=== PATIENT | male | born 1990 | race Caucasian/White ===

== ENCOUNTER 2016-05-08 12:21 | Emergency (ER) | payer OTHER ==
[2016-05-08 12:35] VITALS: BP 137/95; PULSE 86; TEMP 97.9; BMI 35.9
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
== END 2016-05-08 14:37 | disposition home or self-care (01) ==
LOC: FER 12:21
DX: M70.51 Other bursitis of knee, right knee (principal); G89.29 Other chronic pain
CPT/HCPCS: 73562-TC-RT; 99282-25

== ENCOUNTER 2017-03-19 11:39 | Emergency (ER) | payer OTHER ==
[2017-03-19 11:46] VITALS: BP 131/77; PULSE 77; TEMP 98; BMI 33.0
[2017-03-19 12:45] LABS: URINE APPEARANCE CLEAR; URINE BILIRUBIN NEGATIVE (NEGATIVE); URINE BLOOD NEGATIVE (NEGATIVE); URINE COLOR LTYELLOW; URINE GLUCOSE (UA) NEGATIVE (NEGATIVE); URINE KETONE NEGATIVE (NEGATIVE); URINE NITRITE NEGATIVE (NEGATIVE); URINE PROTEIN NEGATIVE (NEGATIVE); URINE UROBILINOGEN NEGATIVE mg/dL (0.2-1.0)
[2017-03-19] MEDS ORDERED: AZITHROMYCIN 1 GM PACKET PO ONE (12:58)
--- NOTE | 2017-03-19 13:08 | PDOC ---
History of Present Illness - General Chief Complaint: Pain Stated Complaint: STD TESTING Time Seen by Provider: 03/19/17 11:54 History Source: Patient Exam Limitations: No Limitations - History of Present Illness Travel History: No Initial Comments: 03/19/17 13:04 26 yr male with urinary urgency for 2 days. Pt states he has had unprotected sex with 2 women in the past month. He also states one of them told him she has trichominias. Pt has history of chlamydia unsure if he was treated. Pain Radiation: reports: no radiation Activities at Onset: reports: none Past History - Past Medical History Allergies/Adverse Reactions: Allergies Allergy/AdvReac Type Severity Reaction Status Date / Time SEAFOOD Allergy Swelling Uncoded 03/19/17 11:46 Home Medications: Ambulatory Orders Metronidazole [Flagyl -] 500 mg PO BID #14 tablet 03/19/17 COPD: No Other medical history: DENIES - Suicide/Smoking/Psychosocial Hx Smoking Status: No Smoking History: Never smoked Have you smoked in the past 12 months: No Number of Cigarettes Smoked Daily: 0 Information on smoking cessation initiated: Yes Hx Alcohol Use: No Drug/Substance Use Hx: Yes (MARIJUANA) Substance Use Type: None *Physical Exam - Vital Signs Last Vital Signs Temp Pulse Resp BP Pulse Ox 98 F 77 18 131/77 100 03/19/17 11:44 03/19/17 11:44 03/19/17 11:44 03/19/17 11:44 03/19/17 11:44 - Physical Exam General Appearance: Yes: Nourished, Appropriately Dressed HEENT: positive: EOMI, FAHAD Neck: positive: Supple Respiratory/Chest: positive: Lungs Clear, Normal Breath Sounds Cardiovascular: positive: Regular Rhythm, Regular Rate Gastrointestinal/Abdominal: positive: Normal Bowel Sounds, Soft. negative: Tender Male Genitalia: positive: normal genitalia. negative: discharge, testicular tenderness, testicular mass, epididymus tender, CVAT Rectal Exam: positive: deferred Extremity: positive: Normal Capillary Refill, Normal Inspection, Normal Range of Motion Integumentary: positive: Normal Color, Dry, Warm Neurologic: positive: Fully Oriented, Alert, Normal Mood/Affect, Normal Response , Motor Strength 5/5 ED Treatment Course - ADDITIONAL ORDERS Additional order review: Laboratory Results 03/19/17 12:21 Urine Color Ltyellow Urine Appearance Clear Urine pH 7.0 D Ur Specific [place] 1.016 Urine Protein Negative Urine Glucose (UA) Negative Urine Ketones Negative Urine Blood Negative Urine Nitrite Negative Urine Bilirubin Negative Urine Urobilinogen Negative Medical Decision Making - Medical Decision Making 03/19/17 13:09 cc: urinary urgency neg dysuria, neg discharge neg scrotal pain neg testicle tenderness exposed to trichomonas unprotected sexual intercourse will treat for Gc/chlamydia and trich will check HIV and RPR safe sexual practices and risky behavior discussed in detail with pat. pt understands to use condoms every time to protect himself . pt aware to not have any sexual contact for at least one week and to notify all partners to be tested . 03/20/17 21:27 *DC/Admit/Observation/Transfer Diagnosis at time of Disposition: Possible exposure to STD, Urinary urgency, Concern about STD in male without diagnosis - Discharge Dispostion Disposition: HOME Condition at time of disposition: Good - Prescriptions Prescriptions: Metronidazole [Flagyl -] 500 mg PO BID #14 tablet - Referrals Referrals: STAFF,NOT ON [Primary Care Provider] - Jose Chandler MD [Staff Physician] - - Patient Instructions Additional Instructions: 03/19/17 1. As discussed, a screening test for the HIV virus was performed today. Your HIV test is Negative (normal). 2. As discussed, if you engaged in high risk-behavior in the three (3) months prior to this test, you could still potentially be at risk and you will need to be re-tested. 3. As discussed, avoid any high risk behavior (such as unprotected sex or needle-sharing) in the future to minimize the chances of kurtis HIV. always use condoms to protect yourself take the flagyl as directed for 7 days we will notify you if the cultures are positive avoid any sexual activity for at least one week return to ER for any worsening symptoms or follow with the urologist if symptoms worsen or persist - Post Discharge Activity
[2017-03-19] MEDS ORDERED: AZITHROMYCIN 250 MG TABLET ONE (13:09)
[2017-03-19 13:53] LABS: HIV 1 & 2 AB NEGATIVE; HIV 1 AGp24 NEGATIVE
[2017-03-19 17:05] LABS: URINE LEUK ESTERASE Negative (NEGATIVE)
== END 2017-03-19 14:14 | disposition home or self-care (01) ==
LOC: JERFT 11:39
DX: Z20.2 Contact with and (suspected) exposure to infections with a predominantly sexual mode of transmission (principal)
CPT/HCPCS: 36415; 81003; 86593; 87389; 87491; 87591; 99281-25

== ENCOUNTER 2017-07-09 09:24 | Emergency (ER) | payer OTHER ==
[2017-07-09 09:35] VITALS: BP 130/70; PULSE 95; TEMP 97.5; BMI 36.2
--- NOTE | 2017-07-09 10:28 | PDOC ---
History of Present Illness - General Chief Complaint: Pain Stated Complaint: PENILE PROBLEM Time Seen by Provider: 07/09/17 10:11 History Source: Patient Exam Limitations: No Limitations - History of Present Illness Travel History: No Initial Comments: 07/09/17 10:31 Patient came for evaluation of recurrent dysuria, pain and burning with urination. Denies swelling, denies discharge, denies any scrotal pain or swelling. Although states while at work, works as maintenance parts technician, feels some strain and some discomfort in his groin and lower abdomen. Patient states had sex with same partner that needed treatment from 2 months ago although his culture reports were negative. Is concerned that this partner has STDs and has had continued unprotected sex. Denies history of STDs except for a last visit where he was treated for same but understands all tests were negative.. Timing/Duration: reports: constant Quality: reports: mild Abdominal Pain Onset Location: reports: other (Lower quadrant pain and groin) Alleviating Factors: improves with: None Past History - Travel Traveled outside of the country in the last 30 days: No Close contact w/someone who was outside of country & ill: No - Past Medical History Allergies/Adverse Reactions: Allergies Allergy/AdvReac Type Severity Reaction Status Date / Time SEAFOOD Allergy Severe Swelling Uncoded 07/09/17 09:25 Home Medications: Ambulatory Orders NK [No Known Home Medication] 07/09/17 COPD: No - Suicide/Smoking/Psychosocial Hx Smoking Status: No Smoking History: Never smoked Have you smoked in the past 12 months: No Number of Cigarettes Smoked Daily: 0 Hx Alcohol Use: No Drug/Substance Use Hx: No Substance Use Type: None Review of Systems - Review of Systems Able to Perform ROS?: Yes Is the patient limited Vietnamese proficient: Yes Constitutional: Yes: See HPI. No: Symptoms Reported, Fever, Malaise HEENTM: No: Symptoms Reported Respiratory: No: Symptoms reported ABD/GI: Yes: Symptoms Reported, See HPI. No: Nausea : Yes: Symptoms Reported, See HPI, Burning, Dysuria, Frequency, Urgency. No: Discharge, Flank Pain, Hematuria Integumentary: No: Symptoms Reported All Other Systems: Reviewed and Negative *Physical Exam - Vital Signs Last Vital Signs Temp Pulse Resp BP Pulse Ox 97.5 F L 95 H 20 130/70 98 07/09/17 09:26 07/09/17 09:26 07/09/17 09:26 07/09/17 09:26 07/09/17 09:26 - Physical Exam General Appearance: Yes: Nourished, Appropriately Dressed. No: Apparent Distress HEENT: positive: FAHAD, Normal ENT Inspection, TMs Normal, Pharynx Normal Neck: positive: Supple. negative: Tender Respiratory/Chest: positive: Normal Breath Sounds Gastrointestinal/Abdominal: positive: Soft. negative: Tender, Distended, Guarding, Rebound, Tenderness, Hepatomegaly, Spleenomegaly Male Genitalia: positive: normal genitalia. negative: testicular tenderness, testicular mass, epididymus tender, inguinal hernia, CVAT, hematuria Musculoskeletal: positive: Normal Inspection. 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 07/09/17 13:05 07/09/17 20:28 *DC/Admit/Observation/Transfer Diagnosis at time of Disposition: Concern about STD in male without diagnosis - Discharge Dispostion Disposition: HOME Condition at time of disposition: Stable Admit: No - Referrals - Patient Instructions Printed Discharge Instructions: Facts About Sexually Transmitted Infections Additional Instructions: You been treated today with azithromycin 1 g by mouth for treatment of presumed chlamydia You have been treated with Rocephin 250 mg injection for treatment of presumned gonorrhea The syphilis test, gonorrhea and chlamydia testing will not be completed for the next few days. You may call and leave message for return phone call with lab results. Be sure to be clear with your name, birthdate, and phone number Always use condoms with the partners Followup with COLLECTION TELLER or PMD in one week for reevaluation and retesting. - Post Discharge Activity Forms/Work/School Notes: Back to Work
[2017-07-09] MEDS ORDERED: AZITHROMYCIN 1 GM PACKET PO ONE (10:30)
[2017-07-09 10:37] LABS: URINE APPEARANCE SLCLOUDY; URINE BILIRUBIN NEGATIVE (NEGATIVE); URINE BLOOD NEGATIVE (NEGATIVE); URINE COLOR YELLOW; URINE GLUCOSE (UA) NEGATIVE (NEGATIVE); URINE KETONE NEGATIVE (NEGATIVE); URINE LEUK ESTERASE NEGATIVE (NEGATIVE); URINE NITRITE NEGATIVE (NEGATIVE); URINE PROTEIN NEGATIVE (NEGATIVE); URINE UROBILINOGEN 4.0 E.U/dl mg/dL (0.2-1.0)
[2017-07-09] MEDS ORDERED: AZITHROMYCIN 250 MG TABLET ONE (10:52)
== END 2017-07-09 13:13 | disposition home or self-care (01) ==
LOC: JERFT 09:24
DX: R30.0 Dysuria (principal); Z11.3 Encounter for screening for infections with a predominantly sexual mode of transmission
CPT/HCPCS: 36415; 81003; 86593; 87389; 87491; 87591; 99281-25

== ENCOUNTER 2018-05-21 16:47 | Emergency (ER) | payer OTHER ==
--- NOTE | 2018-05-21 16:53 | PDOC ---
Rapid Medical Evaluation Chief Complaint: Urinary Problem Time Seen by Provider: 05/21/18 16:51 Medical Evaluation: Allergies Allergy/AdvReac Type Severity Reaction Status Date / Time SEAFOOD Allergy Severe Swelling Uncoded 07/09/17 09:25 05/21/18 16:51 Pt c/o: dysuria x 2 weeks, no discharge, no hematuria, wants full std w/u Pt on brief exam: vss Pt ordered for: gc/chylam, RPR, hiv ordered Pt to proceed to the ED Discharge Disposition - Diagnosis Dysuria - Referrals - Patient Instructions - Post Discharge Activity
[2018-05-21 16:55] VITALS: BP 159/99; PULSE 95; TEMP 98.3; BMI 32.1
[2018-05-21] MEDS ORDERED: AZITHROMYCIN 500 MG TABLET PO ONE (17:41)
--- NOTE | 2018-05-21 17:46 | PDOC ---
History of Present Illness - General Chief Complaint: Urinary Problem Stated Complaint: PENILE IRRITATION, STD testing Time Seen by Provider: 05/21/18 16:51 History Source: Patient Exam Limitations: No Limitations - History of Present Illness Travel History: No Initial Comments: 05/21/18 18:05 HISTORY OF PRESENT ILLNESS: 27-year-old male denies medical history presents emergency department for evaluation of dysuria and urinary frequency. Patient states he has been having unprotected vaginal intercourse with one woman over the past 3 months. He noted symptoms started approximately 2 weeks after the initial encounter. Patient reports a negative HIV test approximately 4 months ago. Patient denies any fevers, chills, hematuria, penile discharge. No recent travel or sick contacts. PAST MEDICAL HISTORY: Denies past medical history SURGICAL HISTORY: Denies ALLERGIES: No known drug allergies REVIEW OF SYSTEMS General/Constitutional: Denies fever or chills. Denies weakness, weight change. HEENT: Denies change in vision. Denies ear pain or discharge. Denies sore throat. Cardiovascular: Denies chest pain or shortness of breath. Respiratory: Denies cough, wheezing, or hemoptysis. Gastrointestinal: Denies nausea, vomiting, diarrhea or constipation. Denies rectal bleeding. Genitourinary: see HPI Musculoskeletal: Denies joint or muscle swelling or pain. Denies neck or back pain. Skin and breasts: Denies rash or easy bruising. Neurologic: Denies headache, vertigo, loss of consciousness, or loss of sensation. Psychiatric: Denies depression or anxiety. Endocrine: Denies increased thirst. Denies abnormal weight change. Hematologic/Lymphatic: Denies anemia, easy bleeding, or history of blood clots. Allergic/Immunologic: Denies hives or skin allergy. Denies latex allergy. PHYSICAL EXAM General Appearance: Well-appearing, appropriately dressed. No apparent distress , no intoxication. Respiratory/Chest: Lungs CTAB. No shortness of breath, chest tenderness, respiratory distress, accessory muscle use. No crackles, rales, rhonchi, stridor , wheezing, dullness Cardiovascular: RRR. S1, S2. No JVD, murmur, bradycardia, tachycardia. Gastrointestinal/Abdominal: Normal bowel sounds. Abdomen soft, non-distended. No tenderness or rebound tenderness. No organomegaly, pulsatile mass, guarding, hernia, hepatomegaly, splenomegaly. Genitals: Exam is unremarkable Lymphatic: No adenopathy, tenderness. Past History - Past Medical History Allergies/Adverse Reactions: Allergies Allergy/AdvReac Type Severity Reaction Status Date / Time Fish Containing Products Allergy Severe Swelling Verified 05/21/18 17:58 SEAFOOD Allergy Severe Swelling Uncoded 05/21/18 16:55 Home Medications: Ambulatory Orders NK [No Known Home Medication] 07/09/17 COPD: No - Suicide/Smoking/Psychosocial Hx Smoking Status: No Smoking History: Never smoked Have you smoked in the past 12 months: No Number of Cigarettes Smoked Daily: 0 Information on smoking cessation initiated: No Hx Alcohol Use: Yes (occasional) Drug/Substance Use Hx: No Substance Use Type: None *Physical Exam - Vital Signs Last Vital Signs Temp Pulse Resp BP Pulse Ox 98.3 F 95 H 18 159/99 98 05/21/18 16:51 05/21/18 16:51 05/21/18 16:51 05/21/18 16:51 05/21/18 16:51 Moderate Sedation - Procedure Monitoring Vital Signs: Procedure Monitoring Vital Signs Temperature 98.3 F 05/21/18 16:51 Pulse Rate 95 H 05/21/18 16:51 Respiratory Rate 18 05/21/18 16:51 Blood Pressure 159/99 05/21/18 16:51 O2 Sat by Pulse Oximetry (%) 98 05/21/18 16:51 Medical Decision Making - Medical Decision Making 05/21/18 18:07 A/P: 27-year-old male with dysuria after unprotected sex GC chlamydia urine testing HIV testing RPR testing Azithromycin 1 g orally Ceftriaxone 150 mg IM HIV testing is negative. I will discharge the patient home with instructions to discuss symptoms with his current partner so she can be treated. Patient is verbalized understanding that chlamydia and RPR testing will take a few days prior to getting the results. Patient is instructed to wear barrier control throat all sexual contact. I discussed the physical exam findings, ancillary test results and final diagnoses with the patient. I answered all of the patient's questions. The patient was satisfied with the care received and felt comfortable with the discharge plan and treatment plan. The patient will call their primary care physician within 24 hours to arrange follow-up and will return to the Emergency Department with any new, persistent or worsening symptoms. *DC/Admit/Observation/Transfer Diagnosis at time of Disposition: Dysuria, Concern about STD in male without diagnosis - Discharge Dispostion Disposition: HOME Condition at time of disposition: Stable Decision to Admit order: No - Referrals - Patient Instructions Additional Instructions: You been treated today with azithromycin 1 g by mouth for treatment of presumed chlamydia You have been treated with Rocephin 250 mg injection for treatment of presumned gonorrhea The syphilis test, gonorrhea and chlamydia testing will not be completed for the next few days. You may call and leave message for return phone call with lab results. Be sure to be clear with your name, birthdate, and phone number Always use condoms with the partners Followup with RN TEACHER or PMD in one week for reevaluation and retesting. - Post Discharge Activity
== END 2018-05-21 18:11 | disposition home or self-care (01) ==
LOC: JERFT 16:47
DX: R30.0 Dysuria (principal); Z11.3 Encounter for screening for infections with a predominantly sexual mode of transmission
CPT/HCPCS: 36415; 86593; 87389; 87491; 87591; 99281-25

== ENCOUNTER 2018-10-13 16:13 | Emergency (ER) | payer OTHER ==
--- NOTE | 2018-10-13 16:17 | PDOC ---
Rapid Medical Evaluation Time Seen by Provider: 10/13/18 16:15 Medical Evaluation: Allergies Allergy/AdvReac Type Severity Reaction Status Date / Time Fish Containing Products Allergy Severe Swelling Verified 05/21/18 17:58 SEAFOOD Allergy Severe Swelling Uncoded 05/21/18 16:55 10/13/18 16:15 HPI:Urinary frequency and irritation x3 days; wants STD testing and penis irritation PE: no gross deficits ORDERS: UA and CX 10/13/18 16:17 Discharge Disposition - Diagnosis Urinary urgency - Referrals - Patient Instructions - Post Discharge Activity
[2018-10-13 16:20] VITALS: BP 133/86; PULSE 107; TEMP 98.2; BMI 33.5
--- NOTE | 2018-10-13 17:17 | PDOC ---
History of Present Illness - General Chief Complaint: Urinary Problem Stated Complaint: painn in privit chai Time Seen by Provider: 10/13/18 16:15 History Source: Patient Exam Limitations: Clinical Condition - History of Present Illness Initial Comments: 10/13/18 17:12 Patient with no significant past medical history present with complaint of 2 months history of intermittent irritation to the glans of penis. Patient reported having lesions to the glans of penis which has been there for months and has been irritating during sex. Patient reported he saw a PCP few months ago for symptoms and wanted it removed by PCP told him it doesn't have to be removed due to not hurting him. Patient requested STD testing by reported will have to leave and can't wait for the results so will only do GC and chlamydia tests and follow-up with PCP for rest of the tests. Patient reported with new partner for the past 2 months. Patient also reported urinary frequency but denies burning with urination or pain no discharge. Denies any other symptoms Timing/Duration: other (2 months) Past History - Past Medical History Allergies/Adverse Reactions: Allergies Allergy/AdvReac Type Severity Reaction Status Date / Time Fish Containing Products Allergy Severe Swelling Verified 05/21/18 17:58 SEAFOOD Allergy Severe Swelling Uncoded 05/21/18 16:55 Home Medications: Ambulatory Orders Doxycycline Hyclate 100 mg PO BID 7 Days #14 capsule 10/13/18 COPD: No - Suicide/Smoking/Psychosocial Hx Smoking Status: No Smoking History: Never smoked Have you smoked in the past 12 months: No Number of Cigarettes Smoked Daily: 0 Information on smoking cessation initiated: No Hx Alcohol Use: No Drug/Substance Use Hx: No Substance Use Type: None Review of Systems - Review of Systems Able to Perform ROS?: Yes Is the patient limited [place] proficient: No Constitutional: No: Fever, Malaise, Weakness HEENTM: No: Symptoms Reported Respiratory: No: Symptoms reported Cardiac (ROS): No: Symptoms Reported ABD/GI: No: Constipated, Diarrhea, Nausea, Vomiting, Abdominal cramping : Yes: Symptoms Reported, See HPI, Frequency, Lesions (gland of penis). No: Burning, Dysuria, Discharge, Flank Pain, Hematuria, Pain, Urgency, Testicular Mass, Testicular Swelling, Testicular Pain Musculoskeletal: No: Back Pain Integumentary: Yes: Symptoms Reported, Lesions (gland of penis) All Other Systems: Reviewed and Negative *Physical Exam - Vital Signs Last Vital Signs Temp Pulse Resp BP Pulse Ox 98.2 F 107 H 16 133/86 97 10/13/18 16:17 10/13/18 16:17 10/13/18 16:17 10/13/18 16:17 10/13/18 16:17 - Physical Exam Comments: 10/13/18 17:18 GENERAL: Well developed, well nourished. Awake and alert. No acute distress. NECK: Supple. Full ROM. CARDIOVASCULAR: Regular rate and rhythm. No murmurs, rubs, or gallops. Distal pulses are 2+ and symmetric. PULMONARY: No evidence of respiratory distress. ABDOMINAL: Soft. Non-tender. Non-distended. No rebound or guarding. No organomegaly. Normoactive bowel sounds. MUSCULOSKELETAL Normal range of motion at all joints. : Tiny skin color growth around gland or penis an uncircumcised patient. No skin erythema. No discharge from penis. No scrotal pain or swelling. SKIN: Warm and dry. Normal capillary refill. NEUROLOGICAL: Alert, awake, appropriate. Gait is normal without ataxia. PSYCHIATRIC: Cooperative. Good eye contact. Appropriate mood General Appearance: Yes: Nourished, Appropriately Dressed. No: Apparent Distress Medical Decision Making - Medical Decision Making 10/13/18 17:20 Patient with no significant past medical history present with complaint of penile irritation to chronic lesion to plan of penis which patient wishes to have lesions remove. Patient also reported in her frequency but denies dysuria, burning with urination or pain no discharge. Exam significant for multiple tiny skin color lesion around gland penis with no excoriation in uncircumcised patient. Gonorrhea and chlamydia tests ordered. UA urine culture lab ordered. Patient be discharge based on lab results with urology follow-up 10/13/18 18:35 UA with no significant findings. Urine culture and urine GC and chlamydia lab pending. Patient be discharged home on doxycycline twice a day for 1 week pending culture results with urology follow-up for pain no lesions. *DC/Admit/Observation/Transfer Diagnosis at time of Disposition: Urinary urgency, Rash, Concern about STD in male without diagnosis - Discharge Dispostion Disposition: HOME Decision to Admit order: No - Prescriptions Prescriptions: Doxycycline Hyclate 100 mg PO BID 7 Days #14 capsule - Referrals Referrals: Ilir Greene MD., MD [Staff Physician] - - Patient Instructions Printed Discharge Instructions: DI for Skin Lesion Removal Additional Instructions: Medications as prescribed. Follow-up referred urology for removal skin growth - Post Discharge Activity
[2018-10-13 18:15] LABS: URINE APPEARANCE CLEAR; URINE BILIRUBIN NEGATIVE (NEGATIVE); URINE COLOR YELLOW; URINE GLUCOSE (UA) NEGATIVE (NEGATIVE); URINE KETONE NEGATIVE (NEGATIVE); URINE LEUK ESTERASE NEGATIVE (NEGATIVE); URINE NITRITE NEGATIVE (NEGATIVE); URINE PROTEIN TRACE (NEGATIVE); URINE UROBILINOGEN 0.2 mg/dL (0.2-1.0)
== END 2018-10-13 18:39 | disposition home or self-care (01) ==
LOC: JERFT 16:13
DX: N48.89 Other specified disorders of penis (principal); R21 Rash and other nonspecific skin eruption; Z11.3 Encounter for screening for infections with a predominantly sexual mode of transmission
CPT/HCPCS: 36415; 81003; 87086; 87491; 87591; 99281-25

== ENCOUNTER 2019-02-24 16:43 | Emergency (ER) | payer OTHER ==
--- NOTE | 2019-02-24 16:59 | PDOC ---
Rapid Medical Evaluation Chief Complaint: Rash Time Seen by Provider: 02/24/19 16:52 Medical Evaluation: Allergies Allergy/AdvReac Type Severity Reaction Status Date / Time Fish Containing Products Allergy Severe Swelling Verified 05/21/18 17:58 SEAFOOD Allergy Severe Swelling Uncoded 05/21/18 16:55 02/24/19 16:54 I have performed a brief in-person evaluation of this patient. The patient presents with a chief complaint of:intermittant swelling to sole of foot right foot, spots on left foot thursday, all resolved. today noted same firm itching swelling to both index fingertips . No fevers.No URI symptoms. No Hx of same Pertinent physical exam findings: firm nodular palpation to distal fingertips. ALSO c/o penile drainage x 2 weeks I have ordered the following: RPR, UA, Labs The patient will proceed to the ED for further evaluation. Discharge Disposition - Diagnosis Possible exposure to STD - Discharge Dispostion Condition at time of disposition: Stable - Referrals - Patient Instructions - Post Discharge Activity
[2019-02-24 17:07] VITALS: BP 147/82; PULSE 89; TEMP 98.5; BMI 35.9
[2019-02-24 17:27] LABS: EPI CELLS 0.8 /HPF (0-5/HPF); HYALINE CASTS 0 /lpf (0-8); URINE APPEARANCE CLEAR; URINE BACTERIA 17.4 /hpf (NEGATIVE); URINE BILIRUBIN NEGATIVE (NEGATIVE); URINE COLOR YELLOW; URINE GLUCOSE (UA) NEGATIVE (NEGATIVE); URINE KETONE NEGATIVE (NEGATIVE); URINE LEUK ESTERASE 2+ (NEGATIVE); URINE NITRITE NEGATIVE (NEGATIVE); URINE PROTEIN NEGATIVE (NEGATIVE); URINE RBC 8 /hpf (0-4); URINE UROBILINOGEN 0.2 mg/dL (0.2-1.0); URINE WBC 1 /hpf (0-5)
--- NOTE | 2019-02-24 17:30 | PDOC ---
History of Present Illness - General Chief Complaint: Rash Stated Complaint: RASH Time Seen by Provider: 02/24/19 16:52 History Source: Patient - History of Present Illness Initial Comments: 02/24/19 18:41 Chief complaint: Rash and dysuria Patient is a 28-year-old male who is been to the ER several times with similar complaints but today he noticed that he had itching and rash on his hands and feet. He did state he recently traveled and felt like he was bitten by something in the hotel. Patient has seen urologist several times for his urinary complaints. The urologist has told him he has kidney stones, he is scheduled for a lithotripsy this month. He had missed a prior date for it. Patient denies any fever, nausea or vomiting. Patient does state he has new sexual partner. Patient states that his complaints regarding bumps on his penis have been evaluated by his urologist who told him "I would be committing malpractice if I did anything with those". Patient states he has not followed up with his primary care doctor because it takes forever to see her. No discharge GENERAL/CONSTITUTIONAL: No fever, weakness. dizziness HEAD, EYES, EARS, NOSE AND THROAT: No change in vision. No ear pain or discharge. No sore throat. CARDIOVASCULAR: No chest pain RESPIRATORY: No shortness of breath or cough GASTROINTESTINAL: No pain, nausea, vomiting, diarrhea or constipation GENITOURINARY: +dysuria MUSCULOSKELETAL: No neck or back pain SKIN: +rash NEUROLOGIC: No headache, vertigo, loss of consciousness, or loss of sensation. GENERAL: The patient is awake, alert, and fully oriented, in no acute distress. HEAD: Normal with no signs of trauma. EYES: Pupils equal, round and reactive to light, sclera anicteric, conjunctiva clear. ENT: pharynx: no erythema, no exudate, uvula midline NECK: supple CHEST: clear, nontender, rr ABD: soft, nontender Genitals: Not circumcised, foreskin easily retracted without any erythema, no discharge, no gross signs of lesions on the penis, testicles not swollen, no erythema, no lymphadenopathy, no tenderness BACK: no tenderness or signs of injury EXTREMITIES: Normal range of motion, no edema. NEUROLOGICAL: Normal speech, normal gait. SKIN: Warm, Dry Past History - Past Medical History Allergies/Adverse Reactions: Allergies Allergy/AdvReac Type Severity Reaction Status Date / Time Fish Containing Products Allergy Severe Swelling Verified 02/24/19 16:59 SEAFOOD Allergy Severe Swelling Uncoded 02/24/19 16:59 Home Medications: Ambulatory Orders Doxycycline Hyclate 100 mg PO BID 7 Days #14 capsule 10/13/18 Sulfamethoxazole/Trimethoprim [Bactrim Ds Tablet] 1 each PO BID #10 tablet 02/24 predniSONE [Deltasone -] 40 mg PO DAILY #8 tablet 02/24/19 COPD: No - Psycho Social/Smoking Cessation Hx Smoking Status: No Smoking History: Never smoked Have you smoked in the past 12 months: No Number of Cigarettes Smoked Daily: 0 Information on smoking cessation initiated: No Hx Alcohol Use: No Drug/Substance Use Hx: No Substance Use Type: None *Physical Exam - Vital Signs Last Vital Signs Temp Pulse Resp BP Pulse Ox 98.5 F 89 18 147/82 100 02/24/19 16:55 02/24/19 16:55 02/24/19 16:55 02/24/19 16:55 02/24/19 16:55 ED Treatment Course - ADDITIONAL ORDERS Additional order review: Laboratory Results 02/24/19 17:12 Urine Color Yellow Urine Appearance Clear Urine pH 5.0 Ur Specific [place] 1.020 Urine Protein Negative Urine Glucose (UA) Negative Urine Ketones Negative Urine Blood Negative Urine Nitrite Negative Urine Bilirubin Negative Urine Urobilinogen 0.2 Ur Leukocyte Esterase 2+ H Urine WBC (Auto) 1 Urine RBC (Auto) 8 Urine Casts (Auto) 0 U Epithel Cells (Auto) 0.8 Urine Bacteria (Auto) 17.4 Medical Decision Making - Medical Decision Making 02/24/19 18:45 28-year-old male who has been seen urologist for similar complaints and been in the ER before for similar complaints of dysuria, little bumps on his penis that has been evaluated fully by the urologist, told he has kidney stones is scheduled for lithotripsy. Patient appears very comfortable and complaining of similar complaints that he has pressure when he urinates. He has no fever, nausea or vomiting. Patient also came to the ER because he had itchy rash to his hands and feet that he started having after he was bitten by something in a hotel room. Patient has no fever and looks well, no shortness of breath. Patient has new female sexual contact. Patient will get HIV test, RPR, chlamydia and gonorrhea screening, UA. Will give patient Benadryl and prednisone for the rash. These are unlikely related. HIV was negative, UA showed small amount of leukocytes and white cells although there was some bacteria but given his symptoms and history, we will give him Bactrim twice daily for 5 days. Patient offered STD prophylaxis which he accepted. He will be given that. Patient was instructed to follow-up with his urologist tomorrow. He was just fully explained to patient that he needs to follow-up with his regular doctor who will do a more comprehensive evaluation of his symptoms. Patient understood. Patient also prescribed prednisone for the itchy rash. Discussed issues, findings, results, applicable medications and treatments and follow-up. All these were understood and all questions were answered Discharge - Discharge Information Problems reviewed: Yes Clinical Impression/Diagnosis: Possible exposure to STD, Rash Condition: Stable Disposition: HOME - Admission No - Additional Discharge Information Prescriptions: predniSONE [Deltasone -] 40 mg PO DAILY #8 tablet Sulfamethoxazole/Trimethoprim [Bactrim Ds Tablet] 1 each PO BID #10 tablet - Follow up/Referral - Patient Discharge Instructions Additional Instructions: Take benadryl 25-50 mg every 4 hours for itching take prednisone 40 mg once daily for anther 4 days, start tomorrow take pepcid 20 mg once daily which will help with the reaction and protect your stomach for any upset from the prednisone Take the Bactrim once a day for 5 days, make sure you follow-up with urologist tomorrow. It is very important for you also to follow-up with your primary care doctor regarding your rash so they can do a full comprehensive medical evaluation. return to the er if short of breath, difficulty breathing, or getting worse. otherwise follow up with your doctor in 2-3 days - Post Discharge Activity
[2019-02-24] MEDS ORDERED: diphenhydrAMINE HCL 25 MG CAPSULE (FP) PO ONE ×2 (17:31→17:36)
[2019-02-24] MEDS ORDERED: predniSONE 20 MG TABLET (UD) PO ONE (17:31)
[2019-02-24] MEDS ORDERED: predniSONE 20 MG TABLET (UD) ONE (17:36)
[2019-02-24] MEDS ORDERED: AZITHROMYCIN 500 MG TABLET PO ONE (18:05)
[2019-02-24] MEDS ORDERED: AZITHROMYCIN 250 MG TABLET ONE (18:14)
== END 2019-02-24 18:21 | disposition home or self-care (01) ==
LOC: JERFT 16:43
DX: R21 Rash and other nonspecific skin eruption (principal); Z20.2 Contact with and (suspected) exposure to infections with a predominantly sexual mode of transmission
CPT/HCPCS: 36415; 81003; 86593; 87086; 87389; 87491; 87591; 99282-25

== ENCOUNTER 2019-03-07 15:43 | Day surgery (SDC) | payer OTHER ==
[2019-03-04 17:38] VITALS: BMI 33.7
[2019-03-07] MEDS ORDERED: PROPOFOL 20 ML ONE ×3 (17:00)
[2019-03-07] MEDS ORDERED: MIDAZOLAM HCL 2 MG/2 ML SINGLE DOSE VIAL ONE (17:01)
--- NOTE | 2019-03-07 17:17 | OP ---
Operative Note - Note: Operative Date: 03/07/19 Pre-Operative Diagnosis: left renal stone Operation: left eswl Findings: 4 mm left lower pole stone Post-Operative Diagnosis: Same as Pre-op Surgeon: Robbi Hendricks Anesthesia: Fractional Operative Report Dictated: Yes
[2019-03-07] MEDS ORDERED: LACTATED RINGERS SOLUTION 1,000 ML IV SCH (17:30)
--- NOTE | 2019-03-07 17:38 | OP ---
DATE OF OPERATION: 03/07/2019 PREOPERATIVE DIAGNOSIS: Left renal stone. POSTOPERATIVE DIAGNOSIS: Left renal stone. PROCEDURE: Left extracorporeal shock-wave lithotripsy. ATTENDING: Terri Viera MD ANESTHESIA: Fractional. DESCRIPTION OF PROCEDURE: The patient was brought in the operating room, placed in supine position on the operating room table. Ultrasonography and fluoroscopy were performed. A 4-mm left lower pole stone was identified. At this point, anesthesia and preoperative antibiotics were administered. Shock-wave lithotripsy was then started; 2500 impulses at 17 joules of power were administered to the stone. Excellent fragmentation of the stone was noted. There were no complications noted. The patient tolerated the procedure very well. TERRI VIERA M.D. [id number]
[2019-03-07 17:41] VITALS: TEMP 97.6
[2019-03-07 18:14] VITALS: BP 140/90; PULSE 88
== END 2019-03-07 18:15 | disposition home or self-care (01) ==
LOC: JASU-SURG 15:43
PROVIDERS: ATTEND Urology
PROC: 0TF4XZZ Fragmentation in Left Kidney Pelvis, External Approach (ICD-10-PCS; principal; 2019-03-07 17:45)
DX: N20.0 Calculus of kidney (principal)

== ENCOUNTER 2023-04-11 09:43 | Emergency (ER) | payer OTHER ==
[2023-04-11 10:00] VITALS: RESP 18; TEMP 98.2; BMI 31.4
[2023-04-11 13:11] VITALS: BP 141/99; PULSE 89
== END 2023-04-11 13:10 | disposition home or self-care (01) ==
LOC: JERFT 09:43 → JER 09:43 → JERFT 13:10
DX: S62.634A Displaced fracture of distal phalanx of right ring finger, initial encounter for closed fracture (principal); S66.912A Strain of unspecified muscle, fascia and tendon at wrist and hand level, left hand, initial encounter; S00.81XA Abrasion of other part of head, initial encounter; R07.9 Chest pain, unspecified; V00.838A Other accident with motorized mobility scooter, initial encounter
CPT/HCPCS: 71046-TC-FY; 71101-TC-LT-FY; 73110-TC-LT-FY; 73140-TC-RT-FY; 99284-25

== ENCOUNTER 2024-08-10 21:46 | Inpatient (IN) | payer OTHER ==
[2024-08-10 22:10] VITALS: BMI 33.3
[2024-08-10] MEDS ORDERED: LOPERAMIDE HCL 2 MG CAPSULE PO PRN (23:16)
[2024-08-10] MEDS ORDERED: NALOXONE (NARCAN) HCL 4 MG/0.1 ML SPRAY NS PRN (23:16)
[2024-08-10] MEDS ORDERED: hydrOXYzine PAMOATE 25 MG CAPSULE (FP) PO PRN (23:16)
[2024-08-10] MEDS ORDERED: ONDANSETRON *ODT* 4 MG TABLET SL PRN (23:16)
[2024-08-10] MEDS ORDERED: guaiFENesin 600 MG TABLET.ER (FP) PO PRN (23:16)
[2024-08-10] MEDS ORDERED: DICYCLOMINE HCL 10 MG CAPSULE PO PRN (23:16)
[2024-08-10] MEDS ORDERED: ACETAMINOPHEN 325 MG TABLET (FP) PO PRN (23:16)
[2024-08-10] MEDS ORDERED: BENZOCAINE/MENTHOL (CHLORASEPTIC ) LOZENGE MM PRN (23:16)
[2024-08-10] MEDS ORDERED: BENZONATATE 200 MG CAPSULE PO PRN (23:16)
[2024-08-10] MEDS ORDERED: IBUPROFEN 400 MG TABLET (FP) PO PRN (23:16)
[2024-08-10] MEDS ORDERED: BISMUTH SUBSALICYLATE 524 MG/30 ML PO PRN (23:16)
[2024-08-10] MEDS ORDERED: MAG HYDROX/AL HYDROX/SIMETH 30 ML UNIT-DOSE CUP PO PRN (23:16)
[2024-08-10] MEDS ORDERED: methaDONE HCL 10 MG TABLET (FOR DETOX USE ONLY) PO PRN (23:40)
[2024-08-11] MEDS: cloNIDine HCL 0.1 MG TABLET PO PRN (00:05)
[2024-08-11] MEDS: methaDONE HCL 10 MG TABLET (FOR DETOX USE ONLY) PO ONE (00:30)
[2024-08-11] MEDS: chlordiazePOXIDE HCL 25 MG CAPSULE PO ONE (00:31)
[2024-08-11] MEDS: cloNIDine HCL 0.1 MG TABLET PO ONE (01:10)
[2024-08-11] MEDS: METHOCARBAMOL 500 MG TABLET PO PRN (06:18)
[2024-08-11] MEDS: IBUPROFEN 600 MG TABLET (FP) PO PRN (07:44)
[2024-08-11] MEDS: amLODIPine BESYLATE 5 MG TABLET (FP) PO SCH (09:31)
[2024-08-11] MEDS: PRENATAL VITAMINS W/ FOLIC ACID TABLET (FP) PO SCH (09:32)
[2024-08-11] MEDS: chlordiazePOXIDE HCL 25 MG CAPSULE PO PRN (09:32)
[2024-08-11 11:13] LABS: HEMOGLOBIN 13.3 g/dL (13.7-17.5); MCHC 32.4 g/dl (32.3-36.5); MEAN CELL VOLUME 103.3 fl (79.0-92.2); MEAN PLT VOLUME 10.1 fl (9.4-12.4); PLATELET COUNT 248 x10^3/uL (163-337); RDW 13.9 % (12.0-15.6)
[2024-08-11 11:18] LABS: CHLORIDE 101 mmol/L (98-107); POTASSIUM 3.3 mmol/L (3.5-5.1); SODIUM 137 mmol/L (136-145)
[2024-08-11 11:33] LABS: ALBUMIN 3.9 g/dl (3.4-5.0); ANION GAP 12 mmol/L (4-13); BLOOD UREA NITROGEN 13.3 mg/dL (7-18); CALCIUM 9.4 mg/dL (8.5-10.1); CO2 24 mmol/L (21-32)
[2024-08-11 11:34] LABS: GLUCOSE,RANDOM 94 mg/dL (74-106)
[2024-08-11 11:35] LABS: SGPT/ALT 100 U/L (13-61)
[2024-08-11 11:36] LABS: CREATININE 1.2 mg/dL (0.55-1.3); SGOT/AST 139 U/L (15-37)
[2024-08-11 11:38] LABS: ALK PHOS 94 U/L (45-117); TOT PROT 7.3 g/dl (6.4-8.2)
[2024-08-11 11:39] LABS: BILIRUBIN,TOTAL 1.1 mg/dL (0.2-1)
[2024-08-11] MEDS: POTASSIUM CHLORIDE ORAL LIQUID 20 MEQ/15 ML PO ONE ×2 (13:20→17:09)
[2024-08-11 20:30] LABS: HIV INTERPRETATION NEGATIVE (NEGATIVE)
[2024-08-11] MEDS: THIAMINE 100 MG TABLET PO SCH (22:22)
[2024-08-11] MEDS: MELATONIN 5 MG TABLETS PO SCH (22:22)
[2024-08-11] MEDS: chlordiazePOXIDE HCL 25 MG CAPSULE PO SCH (23:01)
[2024-08-12] MEDS ORDERED: methaDONE HCL 10 MG TABLET (FOR DETOX USE ONLY) PO ONE (00:15)
[2024-08-12] MEDS: MAGNESIUM HYDROX 2400MG/30ML ORAL SUSPENSION 30 ML CUP PO PRN (03:34)
[2024-08-12] MEDS: chlordiazePOXIDE HCL 25 MG CAPSULE PO SCH (05:20)
[2024-08-12] MEDS: methaDONE HCL 10 MG TABLET (FOR DETOX USE ONLY) PO ONE (10:14)
[2024-08-12] MEDS: DOXYCYCLINE HYCLATE 100 MG TABLET PO SCH (10:41)
[2024-08-12] MEDS: POLYETHYLENE GLYCOL (HEALTHYLAX) 3350 17 GM PACKET PO PRN (18:16)
[2024-08-13] MEDS ORDERED: chlordiazePOXIDE HCL 10 MG CAPSULE PO PRN
[2024-08-13] MEDS: chlordiazePOXIDE HCL 25 MG CAPSULE PO SCH (05:54)
[2024-08-13] MEDS: METOPROLOL TARTRATE 25 MG TABLET (FP) PO SCH (21:16)
[2024-08-14] MEDS: chlordiazePOXIDE HCL 10 MG CAPSULE PO SCH (05:32)
[2024-08-14] MEDS: amLODIPine BESYLATE 10 MG TABLET (FP) PO SCH (10:15)
[2024-08-14] MEDS: methaDONE HCL 10 MG TABLET (FOR DETOX USE ONLY) PO ONE (10:15)
[2024-08-14] MEDS: SENNOSIDES 8.6MG TABLET (FP) PO SCH (10:15)
[2024-08-14] MEDS: chlordiazePOXIDE HCL 10 MG CAPSULE PO ONE ×2 (13:25→14:33)
[2024-08-15] MEDS ORDERED: chlordiazePOXIDE HCL 10 MG CAPSULE PO ONE (05:00)
[2024-08-15] MEDS ORDERED: chlordiazePOXIDE HCL 10 MG CAPSULE PO SCH (05:00)
[2024-08-15 06:08] VITALS: PULSE 90
[2024-08-15 09:28] VITALS: BP 143/95; RESP 20; TEMP 96.8
[2024-08-15] MEDS: NAPROXEN 500 MG TABLET PO SCH (11:39)
[2024-08-16] MEDS ORDERED: chlordiazePOXIDE HCL 10 MG CAPSULE PO ONE (05:00)
== END 2024-08-15 11:54 | disposition home or self-care (01) | DRG 773 ==
LOC: YASAS 21:46 → Y3N 23:41
PROVIDERS: ADMIT Allergy & Immunology; ATTEND Allergy & Immunology
PROC: HZ2ZZZZ Detoxification Services for Substance Abuse Treatment (ICD-10-PCS; principal; 2024-08-10)
DX: F11.23 Opioid dependence with withdrawal (principal); F10.230 Alcohol dependence with withdrawal, uncomplicated; E87.6 Hypokalemia; I10 Essential (primary) hypertension; Z87.891 Personal history of nicotine dependence; Z87.442 Personal history of urinary calculi
CPT/HCPCS: 36415; 80053; 80305; 80307; 84132; 85027; 86780; 87389; 87491; 87591; 87661; 93005; 93010